=== PATIENT | male | born 1970 | race Caucasian/White ===

== ENCOUNTER → 2018-10-07 | Outpatient (CLI) | payer BC ==
[~2018-10-07] MED LIST: CEPHALEXIN500 M1 PO; NORCO 325 MG-51 TAB PO; PAXIL 20MG20 MG PO
== END ==
LOC: COL.RAD 09-23 07:30
DX: M50.022 Cervical disc disorder at C5-C6 level with myelopathy (principal); R29.2 Abnormal reflex; R20.8 Other disturbances of skin sensation
CPT/HCPCS: A9585